=== PATIENT | female | born 1995 | race Caucasian/White ===

== ENCOUNTER 2021-11-24 12:39 | Emergency (ER) | payer OTHER ==
[~2021-11-24] VITALS: Ht 175.3 cm; Wt 99.8 kg
== END 2021-11-24 13:44 | disposition home or self-care (01) ==
LOC: ER 12:39
DX: D17.1 Benign lipomatous neoplasm of skin and subcutaneous tissue of trunk (principal)
CPT/HCPCS: 99282

== ENCOUNTER 2022-02-11 15:11 | Emergency (ER) | payer OTHER ==
[~2022-02-11] VITALS: Ht 175.3 cm; Wt 90.7 kg
[~2022-02-11 15:11] MED LIST: Bactrim Ds Tab1 EACH PO
[2022-02-11] MEDS ORDERED: CYCL10 PO (18:01)
== END 2022-02-11 18:23 | disposition home or self-care (01) ==
LOC: ER 15:11
DX: S06.0X1A Concussion with loss of consciousness of 30 minutes or less, initial encounter (principal); S16.1XXA Strain of muscle, fascia and tendon at neck level, initial encounter; W01.198A Fall on same level from slipping, tripping and stumbling with subsequent striking against other object, initial encounter
CPT/HCPCS: 70450; 72040; 96372; 99284-25; A9270; J1885

== ENCOUNTER 2022-06-01 13:56 | Emergency (ER) | payer OTHER ==
[~2022-06-01] VITALS: Ht 172.7 cm; Wt 90.7 kg
[~2022-06-01 13:56] MED LIST changes: +CYCL10 PO
[2022-06-01] MEDS ORDERED: Percocet 5-3251 EACH PO (17:07)
[2022-06-01] MEDS ORDERED: Robaxin750 MG PO (17:07)
== END 2022-06-01 17:49 | disposition home or self-care (01) ==
LOC: ER 13:56
DX: M62.830 Muscle spasm of back (principal)
CPT/HCPCS: A9270; J1885

== ENCOUNTER 2022-06-14 23:05 | Observation (INO) | payer OTHER ==
[~2022-06-14] VITALS: Ht 175.3 cm; Wt 116.8 kg
[~2022-06-14 23:05] MED LIST changes: +Percocet 5-3251 EACH PO; +Robaxin750 MG PO
[2022-06-14 23:35] LABS: Hematocrit 42.8 % (33.0-51.0); Hemoglobin 14.3 g/dL (11.5-16.0); Mean Corpuscular HGB 28.5 pg (26.0-34.0); Mean Corpuscular HGB Conc 33.4 g/dL (31.5-36.5); Mean Corpuscular Volume 85 fL (80-100); Mean Platelet Volume 9.2 fL (9.1-12.4); Platelet Count 211 K/mm3 (150-400); RDW Coefficient Variation 12.7 % (11.7-14.2); RDW Standard Deviation 39.6 fL (35.1-46.3); Red Blood Cell Count 5.01 M/mm3 (3.80-5.20); White Blood Cell Count 12.37 K/mm3 (4.00-11.30)
[2022-06-14 23:53] LABS: Albumin, Blood 3.6 g/dL (3.4-5.0); Albumin/Globulin Ratio 0.9 (0.8-1.8); Bilirubin, Total 0.8 mg/dL (0.1-1.0); Bun/Creatinine Ratio 16.1 (12.0-20.0); Creatinine, Blood 0.74 mg/dL (0.40-1.00); Globulin, Blood 3.9 g/dL (2.2-4.0); Potassium, Blood 3.8 mmol/L (3.5-5.5); Total Protein, Blood 7.5 g/dL (6.4-8.2)
[2022-06-14 23:56] LABS: BASOPHILS PERCENT MAN 0 % (0-2); EOSINOPHILS PERCENT MAN 0 % (0-6); LYMPHOCYTES % ATYPICAL MANUAL 2 % (0-0); LYMPHOCYTES PERCENT MAN 53 % (21-46); MONOCYTES ABSOLUTE MAN 0.74 K/mm3 (0.16-1.47); MONOCYTES PERCENT MAN 6 % (4-13); NEUTROPHILS ABSOLUTE MAN 4.82 K/mm3 (1.96-9.15); SEG NEUTROPHILS PERCENT MAN 39 % (41-73); TOTAL CELLS COUNTED 100
--- NOTE | 2022-06-15 04:15 | NUR ---
ADMISSION PT ADMITTED TO ROOM 338 FROM THE ED, SHE AWAKE, A&O X4, VSS, RESP UNLABORED,RA, PAIN IN RUQ 5/10, DENIES NAUSEA, NPO AT THIS TIME, PASSING FLATUS, VOIDING WNL, URINE IS JON, UA COLLECTED, LR INFUSING @100 ML/HR. PT ORIENTED TO THE ROOM & SAFETY MEASURES, CALL LIGHT IN REACH, WCTM
[2022-06-15 04:47] LABS: Source, Urine Clean Catch
[2022-06-15 05:16] LABS: Appearance, Urine Cloudy (Clear); Bilirubin, Urine Neg (Neg); Blood, Urine Neg (Neg); Color, Urine Yellow (P-Yellow); Glucose Qualitative, Urine Neg (Neg); Ketones, Urine 2+ (Neg); Leukocyte Esterase, Urine Neg (Neg); Nitrite, Urine Neg (Neg); Protein, Urine Neg (Neg); Urobilinogen, Urine 2+ (Normal); pH, Urine 6.5 (5.0-8.0)
[2022-06-15 05:35] LABS: Red Blood Cells, Urine 0-2 /hpf (0-2); Squamous Epithelial Cells Mod /hpf (Few); White Blood Cells, Urine 0-2 /hpf (0-5)
[2022-06-15 05:36] LABS: Amorphous Light (0-Heavy)
[2022-06-15 05:37] LABS: Bacteria Mod /hpf
--- NOTE | 2022-06-15 09:42 | NUR ---
THE PATIENT WAS BROUGHT TO DAY SURGERY FOR HER PROCEDURE.
--- NOTE | 2022-06-15 13:29 | NUR ---
POST OP REPORT RECEIVED AT 1220 FROM PACU. PT ARRIVED BY CHIQUITA ACCOMPANIED BY RN. PT AWAKE AND ALERT. TEARFUL. WANTS TO GO HOME. PT REFUSED TO BE SLID OVER FROM [facility]. SHE WAS DETERMINED TO STAND AND WALK. SHE BECAME VERY DIZZY AND PALE. LAYED HER DOWN IN BED. SHE RECOVERED QUICKLY. PT RANKED HER ABD PAIN 3/10 AFTER WALKING. ABD INCISIONS CHIEF COMPLIANCE OFFICER WITH EDGES APPROXIMATED. NO SWELLING OR DRAINAGE NOTED. PT CALLED HER FRIEND ALEN. THIS NURSE CALLED PT THAT SHE WAS OUT OF SURGERY AND RECOVERING. DR DOLL HERE TO SEE PT 1310. HE REVIEWED HER SURGERY COURSE WITH HER. VSS. SHE REQUESTED PAIN MEDICATION FENTANYL 25MCG GIVEN D/T HER BEING DROWSY. FENTAYL EFFECTIVE FOR ABD PAIN. PT CURRENTLY RESTING QUIETLY. CALL LIGHT WITH IN REACH. CONTINUE POC.
--- NOTE | 2022-06-15 16:39 | NUR ---
DISCHARGE PT VOICED HER REQUEST TO GO HOME. CALLED DR DOLL. ORDER RECIEVED. ONLY PERSCRIPTION FOR DISCHARGE WAS A HARD SCRIPT FOR PERCOCET.PT UP WALKING AND EATING. FAMILY AT BEDSIDE. DISCHARGED BY W/C ACCOMANPIED BY RN. CONTINUE POC.
== END 2022-06-15 16:43 | disposition home or self-care (01) ==
LOC: ER 23:05 → ERHOLD 23:06 → MEDS 23:06
PROVIDERS: Emergency Medicine; Physician Assistant; Surgery; ADMIT Surgery
PROC: 0FT44ZZ Resection of Gallbladder, Percutaneous Endoscopic Approach (ICD-10-PCS; principal; 2022-06-15 10:30)
DX: K80.12 Calculus of gallbladder with acute and chronic cholecystitis without obstruction (principal); E66.9 Obesity, unspecified; Z68.31 Body mass index [BMI] 31.0-31.9, adult
CPT/HCPCS: 36415; 76705; 80053; 81001; 81025; 83690; 85025; 87086; 88304; 96374; 96375; 96376; 99285; G0378; J0295; J0694; J1100; J1885; J2250; J2405; J2704; J2795; J3010; J7120

== ENCOUNTER 2022-06-20 16:53 | Emergency (ER) | payer OTHER ==
[~2022-06-20] VITALS: Ht 175.3 cm; Wt 106.6 kg
[2022-06-20 17:39] LABS: Hematocrit 41.4 % (33.0-51.0); Hemoglobin 13.7 g/dL (11.5-16.0); Mean Corpuscular HGB 28.7 pg (26.0-34.0); Mean Corpuscular HGB Conc 33.1 g/dL (31.5-36.5); Mean Corpuscular Volume 87 fL (80-100); Mean Platelet Volume 9.4 fL (9.1-12.4); Platelet Count 225 K/mm3 (150-400); RDW Coefficient Variation 12.7 % (11.7-14.2); RDW Standard Deviation 40.1 fL (35.1-46.3); Red Blood Cell Count 4.77 M/mm3 (3.80-5.20); White Blood Cell Count 8.55 K/mm3 (4.00-11.30)
[2022-06-20 17:56] LABS: Albumin, Blood 3.3 g/dL (3.4-5.0); Albumin/Globulin Ratio 0.8 (0.8-1.8); Bilirubin, Direct 0.2 mg/dL (0.0-0.3); Bilirubin, Indirect 0.4 mg/dL (0.1-0.7); Bilirubin, Total 0.6 mg/dL (0.1-1.0); Bun/Creatinine Ratio 11.3 (12.0-20.0); Calcium, Blood 8.7 mg/dL (8.5-10.1); Creatinine, Blood 0.71 mg/dL (0.40-1.00); Globulin, Blood 3.9 g/dL (2.2-4.0); Potassium, Blood 4.2 mmol/L (3.5-5.5); Total Protein, Blood 7.2 g/dL (6.4-8.2)
[2022-06-20 18:32] LABS: BASOPHILS ABSOLUTE MAN 0.08 K/mm3 (0.00-0.23); BASOPHILS PERCENT MAN 1 % (0-2); EOSINOPHILS ABSOLUTE MAN 0.17 K/mm3 (0.00-0.68); EOSINOPHILS PERCENT MAN 2 % (0-6); LYMPHOCYTES % ATYPICAL MANUAL 4 % (0-0); LYMPHOCYTES ABSOLUTE MAN 4.36 K/mm3 (0.84-5.20); LYMPHOCYTES PERCENT MAN 47 % (21-46); MONOCYTES ABSOLUTE MAN 0.68 K/mm3 (0.16-1.47); MONOCYTES PERCENT MAN 8 % (4-13); MYELOCYTE ABSOLUTE MAN 0.08 K/mm3 (0.00-0.00); MYELOCYTE PERCENT MAN 1 % (0-0); NEUTROPHILS ABSOLUTE MAN 3.16 K/mm3 (1.96-9.15); SEG NEUTROPHILS PERCENT MAN 37 % (41-73); TOTAL CELLS COUNTED 100
[2022-06-20] MEDS ORDERED: ONDA4ODT MM (19:17)
[2022-06-20] MEDS ORDERED: Norco 5-325 Ta1 EACH PO (19:17)
== END 2022-06-20 19:32 | disposition home or self-care (01) ==
LOC: ER 16:53
PROVIDERS: Physician Assistant
DX: G89.18 Other acute postprocedural pain (principal); R10.11 Right upper quadrant pain
CPT/HCPCS: 36415; 80048; 80076; 85025; 93971; J2405

== ENCOUNTER 2023-02-04 05:34 | Emergency (ER) | payer OTHER ==
[~2023-02-04] VITALS: Ht 172.7 cm; Wt 104.3 kg
[~2023-02-04 05:34] MED LIST changes: +Norco 5-325 Ta1 EACH PO; +ONDA4ODT MM
[2023-02-04 06:44] LABS: Source, Urine Clean Catch
[2023-02-04 06:51] LABS: BASOPHILS ABSOLUTE AUTO 0.04 K/mm3 (0.00-0.23); BASOPHILS PERCENT AUTO 0 % (0-2); EOSINOPHILS ABSOLUTE AUTO 0.21 K/mm3 (0.00-0.68); EOSINOPHILS PERCENT AUTO 2 % (0-6); Hematocrit 44.5 % (33.0-51.0); Hemoglobin 14.8 g/dL (11.5-16.0); IMMATURE GRAN ABSOLUTE AUTO 0.07 K/mm3 (0.00-0.10); IMMATURE GRAN PERCENT AUTO 1 % (0-1); LYMPHOCYTES ABSOLUTE AUTO 4.21 K/mm3 (0.84-5.20); LYMPHOCYTES PERCENT AUTO 36 % (21-46); MONOCYTES PERCENT AUTO 7 % (4-13); Mean Corpuscular HGB Conc 33.3 g/dL (31.5-36.5); Mean Corpuscular Volume 87 fL (80-100); Mean Platelet Volume 10.1 fL (9.1-12.4); NEUTROPHILS PERCENT AUTO 55 % (41-73); Platelet Count 220 K/mm3 (150-400); RDW Standard Deviation 38.7 fL (35.1-46.3); Red Blood Cell Count 5.11 M/mm3 (3.80-5.20); White Blood Cell Count 11.83 K/mm3 (4.00-11.30)
[2023-02-04 07:14] LABS: Albumin, Blood 3.7 g/dL (3.4-5.0); Bilirubin, Total 0.4 mg/dL (0.1-1.0); Bun/Creatinine Ratio 16.2 (12.0-20.0); Creatinine, Blood 0.8 mg/dL (0.40-1.00); Globulin, Blood 3.6 g/dL (2.2-4.0); Potassium, Blood 3.8 mmol/L (3.5-5.5); Total Protein, Blood 7.3 g/dL (6.4-8.2)
[2023-02-04 07:26] LABS: Appearance, Urine Clear (Clear); Bilirubin, Urine Neg (Neg); Blood, Urine 2+ (Neg); Color, Urine Yellow (P-Yellow); Glucose Qualitative, Urine Neg (Neg); Ketones, Urine Neg (Neg); Leukocyte Esterase, Urine 1+ (Neg); Nitrite, Urine Pos (Neg); Protein, Urine 2+ (Neg); Specific Gravity, Urine 1.015 (1.003-1.022); Urobilinogen, Urine NORM (Normal)
[2023-02-04] MEDS ORDERED: COLACE100 MG PO (07:29)
[2023-02-04] MEDS ORDERED: Hair, Skin & N1 EACH PO (07:30)
[2023-02-04] MEDS ORDERED: FISH OIL 1,2001 EAC7 PO (07:30)
[2023-02-04] MEDS ORDERED: VITAMIN D325 MC3 PO (07:31)
[2023-02-04] MEDS ORDERED: MERIBIN5 MG PO (07:31)
[2023-02-04] MEDS ORDERED: CYMBALTA30 M2 PO (07:32)
[2023-02-04 07:37] LABS: Mucus Light (0-Heavy); Renal Epithelial Rare /hpf (0-Rare); Squamous Epithelial Cells Few /hpf (Few); Transitional Epithelial Cells Rare /hpf (0-Rare)
[2023-02-04 07:38] LABS: Bacteria Few /hpf; Oval Fat Bodies Few /lpf; Triple Phosphate Crystals Few /hpf; Yeast/Fungi Urine Few /hpf
[2023-02-04] MEDS ORDERED: CEPH500 PO (07:56)
[2023-02-04 08:00] VITALS: BP 126/83
== END 2023-02-04 08:29 | disposition home or self-care (01) ==
LOC: ER 05:34
PROVIDERS: Emergency Medicine
DX: N39.0 Urinary tract infection, site not specified (principal); D68.51 Activated protein C resistance
CPT/HCPCS: 80053; 81001; 85025; 87077; 87086; 87186; 96365; 96375; 99283-25; J0696; J1885

== ENCOUNTER 2023-02-09 17:59 | Emergency (ER) | payer OTHER ==
[~2023-02-09] VITALS: Ht 172.7 cm; Wt 104.3 kg
[~2023-02-09 17:59] MED LIST changes: +CEPH500 PO; +COLACE100 MG PO; +CYMBALTA30 M2 PO; +FISH OIL 1,2001 EAC7 PO; +Hair, Skin & N1 EACH PO; +MERIBIN5 MG PO; +VITAMIN D325 MC3 PO
[2023-02-09 18:39] VITALS: BP 102/71
[2023-02-09 19:33] LABS: Source, Urine Clean Catch
[2023-02-09 19:46] LABS: Appearance, Urine Clear (Clear); Bilirubin, Urine Neg (Neg); Blood, Urine 3+ (Neg); Color, Urine Yellow (P-Yellow); Glucose Qualitative, Urine Neg (Neg); Ketones, Urine Neg (Neg); Leukocyte Esterase, Urine Neg (Neg); Nitrite, Urine Neg (Neg); Protein, Urine Neg (Neg); Urobilinogen, Urine NORM (Normal)
[2023-02-09 20:03] LABS: Bacteria Many /hpf; Squamous Epithelial Cells Mod /hpf (Few); Transitional Epithelial Cells Rare /hpf (0-Rare); White Blood Cells, Urine 0-2 /hpf (0-5)
== END 2023-02-09 20:50 | disposition home or self-care (01) ==
LOC: ER 17:59
PROVIDERS: Physician Assistant
DX: N39.0 Urinary tract infection, site not specified (principal); Z87.891 Personal history of nicotine dependence; Z79.899 Other long term (current) drug therapy
CPT/HCPCS: 81001; 87086; 96372; 99283; J1885

== ENCOUNTER 2023-04-06 00:28 | Emergency (ER) | payer OTHER ==
[~2023-04-06] VITALS: Ht 175.3 cm; Wt 99.8 kg
[2023-04-06 01:57] VITALS: BP 113/77
[2023-04-06 02:16] LABS: Source, Urine Clean Catch
[2023-04-06 02:19] LABS: Bilirubin, Urine Neg (Neg); Blood, Urine 5+ (Neg); Glucose Qualitative, Urine Neg (Neg); Ketones, Urine Neg (Neg); Leukocyte Esterase, Urine 3+ (Neg); Nitrite, Urine Neg (Neg); Protein, Urine 3+ (Neg); Specific Gravity, Urine 1.025 (1.003-1.022); Urobilinogen, Urine NORM (Normal)
[2023-04-06 02:35] LABS: Appearance, Urine Cloudy (Clear); Color, Urine Yellow (P-Yellow)
[2023-04-06 02:36] LABS: Squamous Epithelial Cells Few /hpf (Few); White Blood Cells, Urine TNTC /hpf (0-5)
[2023-04-06 02:37] LABS: Bacteria Many /hpf
[2023-04-06] MEDS ORDERED: SULTRIDS PO (02:54)
[2023-04-06] MEDS ORDERED: Pyridium100 MG PO (02:54)
== END 2023-04-06 03:10 | disposition home or self-care (01) ==
LOC: ER 00:28
PROVIDERS: Physician Assistant
DX: N39.0 Urinary tract infection, site not specified (principal)
CPT/HCPCS: 81001; 87077; 87086; 87186; 99283; A9270

== ENCOUNTER 2023-04-16 21:41 | Emergency (ER) | payer OTHER ==
[~2023-04-16] VITALS: Ht 175.3 cm; Wt 104.3 kg
[~2023-04-16 21:41] MED LIST changes: +Pyridium100 MG PO; +SULTRIDS PO
[2023-04-16 21:50] VITALS: BP 131/83
== END 2023-04-16 22:14 | disposition home or self-care (01) ==
LOC: ER 21:41
DX: J06.9 Acute upper respiratory infection, unspecified (principal); H92.01 Otalgia, right ear; Z79.899 Other long term (current) drug therapy
CPT/HCPCS: 96372; 99283-25; J1885

== ENCOUNTER 2023-08-09 23:46 | Emergency (ER) | payer OTHER ==
[~2023-08-09] VITALS: Ht 175.3 cm; Wt 117.9 kg
[2023-08-10] MEDS ORDERED: NAPR500 PO (00:17)
[2023-08-10] MEDS ORDERED: TraMADol HCl 50 MG Tab PO ONE (00:55)
[2023-08-10 01:00] VITALS: BP 108/70
[2023-08-10] MEDS ORDERED: Hydrocortisone 1% Cream 30 gm TOP ONE (01:15)
== END 2023-08-10 01:50 | disposition home or self-care (01) ==
LOC: ER 23:46
DX: N64.4 Mastodynia (principal)
CPT/HCPCS: 99283; A9270

== ENCOUNTER 2023-12-10 03:57 | Emergency (ER) | payer OTHER ==
[~2023-12-10] VITALS: Ht 172.7 cm; Wt 117.9 kg
[~2023-12-10 03:57] MED LIST changes: +NAPR500 PO
[2023-12-10 06:00] VITALS: BP 109/53
[2023-12-10] MEDS ORDERED: SULTRIDS PO (06:05)
[2023-12-10] MEDS ORDERED: Trimethoprim/Sulfamethoxazole DS Tab PO ONE (06:05)
[2023-12-10] MEDS ORDERED: TRAM50 PO (06:05)
[2023-12-10] MEDS ORDERED: TraMADol HCl 50 MG Tab PO ONE (06:05)
== END 2023-12-10 06:14 | disposition home or self-care (01) ==
LOC: ER 03:57
DX: L72.9 Follicular cyst of the skin and subcutaneous tissue, unspecified (principal); Z87.891 Personal history of nicotine dependence; Z79.899 Other long term (current) drug therapy; Z88.8 Allergy status to other drugs, medicaments and biological substances
CPT/HCPCS: 99282; A9270

== ENCOUNTER 2024-01-16 13:57 | Emergency (ER) | payer OTHER ==
[~2024-01-16] VITALS: Ht 172.7 cm; Wt 129.3 kg
[~2024-01-16 13:57] MED LIST changes: +ALBU90OI INH; +TRAM50 PO
[2024-01-16] MEDS ORDERED: Lactated Ringer's 1,000 ML IV ONE (17:45)
[2024-01-16 17:56] VITALS: BP 115/61
[2024-01-16] MEDS ORDERED: POWDERLAX238 GM PO (18:03)
== END 2024-01-16 18:13 | disposition home or self-care (01) ==
LOC: ER 13:57
DX: K64.8 Other hemorrhoids (principal); K59.09 Other constipation; E66.9 Obesity, unspecified; Z88.8 Allergy status to other drugs, medicaments and biological substances; Z87.891 Personal history of nicotine dependence
CPT/HCPCS: 99283; J7120

== ENCOUNTER 2024-02-24 08:45 | Emergency (ER) | payer OTHER ==
[~2024-02-24] VITALS: Ht 172.7 cm; Wt 40.8 kg
[~2024-02-24 08:45] MED LIST changes: +POWDERLAX238 GM PO
[2024-02-24] MEDS ORDERED: Phentermine HCl15 MG PO (08:53)
[2024-02-24] MEDS ORDERED: OxyCODONE 7.5 mg/Acetam 325 mg TABLET PO ONE (08:55)
[2024-02-24] MEDS ORDERED: Cyclobenzaprine HCl 10 MG Tab PO ONE (09:05)
[2024-02-24 09:30] VITALS: BP 125/82
[2024-02-24] MEDS ORDERED: OXYACE7.5T PO (10:19)
== END 2024-02-24 11:16 | disposition home or self-care (01) ==
LOC: ER 08:45
DX: S82.832A Other fracture of upper and lower end of left fibula, initial encounter for closed fracture (principal); W18.2XXA Fall in (into) shower or empty bathtub, initial encounter; Z87.891 Personal history of nicotine dependence; Z79.899 Other long term (current) drug therapy; Z88.8 Allergy status to other drugs, medicaments and biological substances
CPT/HCPCS: 73562-LT; 73590; 99284-25; A9270

== ENCOUNTER 2024-12-28 19:12 | Emergency (ER) | payer OTHER ==
[~2024-12-28] VITALS: Ht 175.3 cm; Wt 99.8 kg
[~2024-12-28 19:12] MED LIST changes: +OXYACE7.5T PO; +Phentermine HCl15 MG PO
[2024-12-28 19:15] VITALS: BP 129/97
[2024-12-28 19:59] LABS: BASOPHILS ABSOLUTE AUTO 0.04 K/mm3 (0.00-0.23); BASOPHILS PERCENT AUTO 0 % (0-2); EOSINOPHILS ABSOLUTE AUTO 0.26 K/mm3 (0.00-0.68); EOSINOPHILS PERCENT AUTO 3 % (0-6); Hematocrit 46.2 % (33.0-51.0); Hemoglobin 14.9 g/dL (11.5-16.0); IMMATURE GRAN ABSOLUTE AUTO 0.11 K/mm3 (0.00-0.10); IMMATURE GRAN PERCENT AUTO 1 % (0-1); LYMPHOCYTES ABSOLUTE AUTO 2.97 K/mm3 (0.84-5.20); LYMPHOCYTES PERCENT AUTO 33 % (21-46); MONOCYTES ABSOLUTE AUTO 0.55 K/mm3 (0.16-1.47); MONOCYTES PERCENT AUTO 6 % (4-13); Mean Corpuscular HGB Conc 32.3 g/dL (31.5-36.5); Mean Corpuscular Volume 88 fL (80-100); NEUTROPHILS ABSOLUTE AUTO 5.21 K/mm3 (1.96-9.15); NEUTROPHILS PERCENT AUTO 57 % (41-73); NRBC ABSOLUTE 0.00 K/mm3 (0.00-0.02); NRBC Auto 0.0 /100 WBC (0.0-0.2); Platelet Count 265 K/mm3 (150-400); RDW Coefficient Variation 12.5 % (11.7-14.2); RDW Standard Deviation 40.5 fL (35.1-46.3)
[2024-12-28 20:18] LABS: Alanine Aminotransfer (ALT/SGP 38.0 U/L (12-78); Albumin, Blood 3.5 g/dL (3.4-5.0); Albumin/Globulin Ratio 0.9 (0.8-1.8); Anion Gap 6.0 mmol/L (3-11); Aspartate Aminotrans (AST/SGOT 24.0 U/L (12-37); Bilirubin, Total 0.7 mg/dL (0.1-1.0); Blood Urea Nitrogen 13.0 mg/dL (8-24); CO2, Blood 27.0 mmol/L (21-32); Calcium, Blood 8.6 mg/dL (8.5-10.1); Chloride, Blood 108.0 mmol/L (98-108); Creatinine, Blood 0.76 mg/dL (0.40-1.00); Globulin, Blood 3.7 g/dL (2.2-4.0); Glucose, Blood 127.0 mg/dL (70-99); Potassium, Blood 3.4 mmol/L (3.5-5.5); Sodium, Blood 138.0 mmol/L (136-145); Total Protein, Blood 7.2 g/dL (6.4-8.2)
[2024-12-28 22:06] LABS: Source, Urine Clean Catch
[2024-12-28 22:14] LABS: Bilirubin, Urine Neg (Neg); Glucose Qualitative, Urine Neg (Neg); Ketones, Urine Neg (Neg); Leukocyte Esterase, Urine Neg (Neg); Protein, Urine 1+ (Neg); Specific Gravity, Urine 1.020 (1.003-1.022); Urobilinogen, Urine NORM (Normal)
[2024-12-28 22:21] LABS: Color, Urine Yellow (P-Yellow); Red Blood Cells, Urine Not Seen /hpf (0-2); White Blood Cells, Urine 0-2 /hpf (0-5)
[2024-12-28] MEDS ORDERED: NS 1,000 ML IV SCH (23:00)
[2024-12-28] MEDS ORDERED: Ketorolac Tromethamine 15mg Vial IV ONE (23:00)
[2024-12-29] MEDS ORDERED: Potassium Chloride 10 Meq Tablet SA PO ONE (00:45)
== END 2024-12-29 01:01 | disposition home or self-care (01) ==
LOC: ER 19:12
PROVIDERS: Student in an Organized Health Care Education/Training Program
DX: K59.09 Other constipation (principal); E87.6 Hypokalemia; D68.51 Activated protein C resistance; Z90.49 Acquired absence of other specified parts of digestive tract; Z87.891 Personal history of nicotine dependence; Z88.8 Allergy status to other drugs, medicaments and biological substances; Z79.899 Other long term (current) drug therapy
CPT/HCPCS: 74177; 80053; 81001; 83690; 84703; 85025; 87077; 87086; 87186; 96374-59; 99284-25; A9270; J1885; J7030; Q9967

== ENCOUNTER → 2025-01-31 | Outpatient (CLI) | payer OTHER ==
[2025-01-31 11:51] LABS: BASOPHILS ABSOLUTE AUTO 0.03 K/mm3 (0.00-0.23); BASOPHILS PERCENT AUTO 0 % (0-2); EOSINOPHILS ABSOLUTE AUTO 0.20 K/mm3 (0.00-0.68); EOSINOPHILS PERCENT AUTO 3 % (0-6); Hematocrit 42.3 % (33.0-51.0); Hemoglobin 13.8 g/dL (11.5-16.0); IMMATURE GRAN ABSOLUTE AUTO 0.06 K/mm3 (0.00-0.10); IMMATURE GRAN PERCENT AUTO 1 % (0-1); LYMPHOCYTES ABSOLUTE AUTO 2.77 K/mm3 (0.84-5.20); LYMPHOCYTES PERCENT AUTO 37 % (21-46); MONOCYTES ABSOLUTE AUTO 0.82 K/mm3 (0.16-1.47); MONOCYTES PERCENT AUTO 11 % (4-13); Mean Corpuscular HGB Conc 32.6 g/dL (31.5-36.5); Mean Corpuscular Volume 86 fL (80-100); NEUTROPHILS ABSOLUTE AUTO 3.57 K/mm3 (1.96-9.15); NEUTROPHILS PERCENT AUTO 48 % (41-73); NRBC ABSOLUTE 0.00 K/mm3 (0.00-0.02); NRBC Auto 0.0 /100 WBC (0.0-0.2); Platelet Count 243 K/mm3 (150-400); RDW Coefficient Variation 12.1 % (11.7-14.2); RDW Standard Deviation 37.7 fL (35.1-46.3)
[2025-01-31 12:01] LABS: Alanine Aminotransfer (ALT/SGP 35.0 U/L (12-78); Albumin, Blood 3.7 g/dL (3.4-5.0); Albumin/Globulin Ratio 1.0 (0.8-1.8); Anion Gap 9.0 mmol/L (3-11); Aspartate Aminotrans (AST/SGOT 22.0 U/L (12-37); Bilirubin, Total 1.2 mg/dL (0.1-1.0); Blood Urea Nitrogen 17.0 mg/dL (8-24); CO2, Blood 29.0 mmol/L (21-32); Calcium, Blood 8.8 mg/dL (8.5-10.1); Chloride, Blood 102.0 mmol/L (98-108); Creatinine, Blood 0.71 mg/dL (0.40-1.00); Globulin, Blood 3.7 g/dL (2.2-4.0); Glucose, Blood 90.0 mg/dL (70-99); Potassium, Blood 3.7 mmol/L (3.5-5.5); Sodium, Blood 136.0 mmol/L (136-145); Total Protein, Blood 7.4 g/dL (6.4-8.2)
== END ==
LOC: LAB 11:46 → LAB SHORT 11:46
DX: R07.89 Other chest pain (principal)
CPT/HCPCS: 80053; 84484; 85025

== ENCOUNTER → 2025-06-05 | Outpatient (CLI) | payer OTHER ==
[2025-06-05 19:05] LABS: Bacterial Vaginosis PCR Negative (NEGATIVE); Candida Group, PCR NOT DETECTED (NOT DETECT); Candida glabrata-krusei, PCR NOT DETECTED (NOT DETECT)
== END ==
LOC: LAB 17:39 → LAB SHORT 17:39
PROVIDERS: Obstetrics & Gynecology
DX: N89.8 Other specified noninflammatory disorders of vagina (principal); Z12.4 Encounter for screening for malignant neoplasm of cervix
CPT/HCPCS: 81515; 87624; G0145